=== PATIENT | male | born 1960 | race Caucasian/White ===

== ENCOUNTER 2021-05-14 12:12 | Inpatient (IN) | payer BC, SELFPAY ==
[~2021-05-14] VITALS: Ht 172.7 cm; Wt 146.1 kg
--- NOTE | 2021-05-14 12:15 | NUR ---
MD SINGLETON AT BEDSIDE ASSESSING PT.
--- NOTE | 2021-05-14 12:15 | NUR ---
PT PLACED IN BED 6.
[2021-05-14 12:40] VITALS: BP_SYST 95
[2021-05-14 12:53] LABS: BASOPHILS % (AUTO) 1.2 % (0.0-2.0); EOSINOPHILS % (AUTO) 0.9 % (0.0-4.0); HEMATOCRIT 29.1 % (36-54); HEMOGLOBIN 9.2 g/dL (14.0-18.0); LYMPHOCYTES # (AUTO) 0.4 K/uL (1.0-5.5); LYMPHOCYTES % (AUTO) 9.5 % (20.5-51.5); MEAN CORPUSCULAR HEMOGLOBIN 32 pg (27-31); MEAN CORPUSCULAR HGB CONC 32 % (32-36); MEAN CORPUSCULAR VOLUME 102 fL (79.0-98.0); MONOCYTES # (AUTO) 0.3 K/uL (0.0-1.0); MONOCYTES % (AUTO) 8.8 % (1.7-9.3); NEUTROPHILS # (AUTO) 3.1 K/uL (1.8-7.7); NEUTROPHILS % (AUTO) 79.6 % (40.0-70.0); PLATELET COUNT (AUTO) 103 K/uL (130-430); RED BLOOD CELL COUNT(AUTO) 2.84 MIL/uL (4.2-6.2); RED CELL DISTRIBUTION WIDTH 18.6 % (9.0-15.0); WHITE BLOOD COUNT (AUTO) 3.9 K/uL (4.8-10.8)
--- NOTE | 2021-05-14 13:00 | NUR ---
PT REMAINS IN HIS OWN W/C, PT IS OBESE AND EDEMA IN HIS LOWER LEGS. PT IS SUPPOSED TO START DIALYSIS NEXT WEEK.
[2021-05-14 13:09] LABS: POTASSIUM 4.6 mmol/L (3.5-5.1)
[2021-05-14 13:11] LABS: ALBUMIN 2.8 g/dL (3.4-4.8); TOTAL BILIRUBIN 0.9 mg/dL (0.0-1.0)
[2021-05-14 13:22] LABS: CREATININE 8.22 mg/dL (0.55-1.30)
--- NOTE | 2021-05-14 13:30 | NUR ---
IV ACCESS INSERTED TO THE RIGHT AC IN ONE ATTEMPT WITH 22GS. DEXTROSE GIVEN IMMEDIATELY AFTER BLOOD SUGAR CHECK
[2021-05-14] MEDS ORDERED: DEXTROSE 50% JECT 50 ML DISP.SYRIN ONE (13:34)
[2021-05-14 13:56] LABS: INR 1.5 (0.80-1.20); PROTHROMBIN TIME 15.7 SECS (9.5-12.5)
[2021-05-14] MEDS ORDERED: DEXTROSE 50% JECT 50 ML DISP.SYRIN IVP ONE (14:00)
[2021-05-14] MEDS ORDERED: FUROSEMIDE 100 MG/10 ML VIAL IVP ONE (14:00)
[2021-05-14] MEDS ORDERED: CALC0.258 PO (14:19)
[2021-05-14] MEDS ORDERED: NOR10 PO (14:19)
[2021-05-14] MEDS ORDERED: SUCR500T PO (14:19)
[2021-05-14] MEDS ORDERED: METO2.5T6 PO (14:19)
[2021-05-14] MEDS ORDERED: DOXA2TAB PO (14:19)
[2021-05-14] MEDS ORDERED: FURO-149 PO (14:19)
[2021-05-14] MEDS ORDERED: RIVA10TA PO (14:19)
--- NOTE | 2021-05-14 14:25 | NUR ---
PT HAS REMAINED ALERT THE ENTIRE TIME.
--- NOTE | 2021-05-14 14:32 | NUR ---
RN HAS RECEIVED ORDERS FROM MD VARGAS FOR ADMIT TO TELEMETRY. HOME MEDICATIONS ARE RECONCILED, FAMILY IS INFORMED OF THE PLAN OF CARE.
--- NOTE | 2021-05-14 14:38 | NUR ---
PT HAS HAD 3 BM'S AND HAS BEEN CLEANED AND NEW BED LINEN. NIECE AT BEDSIDE.
--- NOTE | 2021-05-14 16:10 | NUR ---
PT CONTINUES TO REST SOUNDLY. COVID TEST PENDING.
--- NOTE | 2021-05-14 18:20 | NUR ---
Notes- received pt in bed, awake and oriented, feels weak, denies any pain, per ER nurse latest blood sugar is 78. patient provided snacks and apple sauce at this time. has left arm shunt for dialysis. Niece at bedside. Oriented to call light use.
--- NOTE | 2021-05-14 18:40 | NUR ---
rounds Seen by Dr. Akins and aware of low blood pressure. spoke to dialysis nurse
[2021-05-14 18:44] VITALS: BP_SYST 90
--- NOTE | 2021-05-14 19:00 | NUR ---
RECEIVED BEDSIDE REPORT FROM RN. PT AWAKE IN BED. FAMILY AT BEDSIDE. PT TO RECEIVED DIALYSIS THIS PM. PT AOX4 ABLE TO MAKE NEEDS KNOWN. WILL CONTINUE TO MONITOR.
[2021-05-14] MEDS: D5/0.45 NS 1,000 ML IV SCH (19:45)
[2021-05-14] MEDS ORDERED: METOCLOPRAMIDE HCL 10 MG TABLET PO ONE (19:45)
[2021-05-14] MEDS ORDERED: amLODIPine BESYLATE 5 MG TABLET PO ONE (19:45)
--- NOTE | 2021-05-14 20:16 | NUR ---
MD CALLED : DR BURNS CALLED AND NOTIFIED THAT PTS BP IS 80/40 , 88/35 , MD ORDERED TO GIVE NS 250 ML BY DIALYSIS NURSE AND CONTINUE WITH THE DIALYSIS ORDER .
[2021-05-14 20:24] VITALS: BP_SYST 90
[2021-05-14] MEDS ORDERED: NS 250 ML IV ONE (20:30)
[2021-05-14] MEDS ORDERED: ALBUMIN HUMAN 25% 100 ML IV ONE (22:00)
--- NOTE | 2021-05-14 22:00 | NUR ---
GA RECEIVING DIALYSIS. BP LOW 80/44 MD MADE AWARE. WILL CONTINUE TO MONITOR.
[2021-05-14] MEDS: NORMAL SALINE 5 ML DISP.SYRIN IVF SCH (22:28)
--- NOTE | 2021-05-14 23:40 | NUR ---
MD CALLED : DR VARGAS CALLED AND NOTIFIED MD THAT PTS BS WAS LOW IN ER AND EARLIER WHILE CHECKING BS WAS ON THE 70S , NO ACCU CHECK ORDER FOR THE PT , MD ORDERED ACCU CHECK Q6HRS AND COVER WITH REGULAR INSULIN COVERAGE AND HYPOGLYCEMIA PROTOCOL .ORDER ENTERED AND NOTIFIED PRIMARY RN
[2021-05-14] MEDS ORDERED: GLUCOSE (DEXTROSE) ORAL GEL -Adults PO PRN (23:45)
[2021-05-14] MEDS ORDERED: DEXTROSE 50% JECT 50 ML DISP.SYRIN IVP PRN (23:45)
[2021-05-14] MEDS ORDERED: D5W 1,000 ML IV PRN (23:45)
[2021-05-15] VITALS (23 sets, daily range): BP systolic 70–125
--- NOTE | 2021-05-15 00:05 | NUR ---
pt transferred to icu. report given to sonia rn at bedside. notified rn that pt bp is low and dr dodson wants to be called once pt is in icu. notified rn about current blood sugar of 56 and pt received apple juice and started pt on d5 1/2 ns @ 50cc/hr. requested rn to recheck blood sugar in 15 minutes. Endorsed rn to dc dressing on L AV shunt site at 2am as per dialysis nurse. Endorsed rn to take pictures of wounds on legs since I was unable to do it due to stat dialysis.
--- NOTE | 2021-05-15 00:05 | NUR ---
RECEIVED TRANSFERRED FROM [facility] A 60 YO MALE WITH DIAGNOSIS OF ACUTE ON CHRONIC RENAL FAILURE. ALERT, BOUTS OF CONFUSION NOTED. AFIB. ON ROOM AIR. POX 94%. FELT COLD, WARM BLANKETS GIVEN. SHARON LOMBARDI VISITING. QUESTIONS ANSWERED. FENG AV SHUNT DRSG D/I, W/ THRILL AND BRUIT NOTED.
--- NOTE | 2021-05-15 00:15 | NUR ---
DR BURNS CALLED, UPDATED ON STATUS. NEW ORDERS GIVEN TO BE IMPLEMENTED.
[2021-05-15] MEDS ORDERED: NOREPINEPHRINE 4 MG/4 ML VIAL IV ONE ×4 (00:31→16:13)
--- NOTE | 2021-05-15 01:00 | NUR ---
LEVOPHED STARTED PER PROTOCOL.
[2021-05-15] MEDS: NOREPINEPHRINE BITARTRATE 4 MG in D5W 246 ML IV PRN ×5 (01:02→22:57)
--- NOTE | 2021-05-15 01:15 | NUR ---
PLACED PT ON O2 AT 2L/MIN/NC. POX 92%.
--- NOTE | 2021-05-15 01:30 | NUR ---
ACCU-CHEK 56, ORANGE JUICE GIVEN.
--- NOTE | 2021-05-15 03:00 | NUR ---
LOWER EXTREMITIES LEG WOUND DRSGS CHANGED, PICTURE TAKEN. LEVOPHED TITRATED EARLIER.
--- NOTE | 2021-05-15 05:00 | NUR ---
BACK CARE GIVEN. ASKED FOR ICE CHIPS. MULTIPLE REQUESTS.
--- NOTE | 2021-05-15 05:30 | NUR ---
OLIGURIC, VOIDED 30CC CLEAR KIMBERLY URINE.
--- NOTE | 2021-05-15 06:00 | NUR ---
ACCU-CHEK 87, NO INSULIN DUE PER SLIDING SCALE COV.
[2021-05-15] MEDS: NORMAL SALINE 5 ML DISP.SYRIN IVF SCH ×3 (06:29→22:57)
--- NOTE | 2021-05-15 06:30 | NUR ---
NASAL CANULA TAKEN OFF PER PT REQUEST. REMAINS IN GUARDED CONDITION.
[2021-05-15] MEDS: INSULIN REGULAR, HUMAN 100 UNITS/ML, 10 ML VIAL (humuLIN R) SUBCUT PRN (06:31)
--- NOTE | 2021-05-15 06:40 | NUR ---
DR VARGAS CALLED, NOTIFIED OF HIGH HR AND LOW BP, AND ANXIETY. ORDERED TO GET DR MORENO CARDIAC CONSULT.
--- NOTE | 2021-05-15 06:53 | NUR ---
CONSULT CARDIO. CONSULTING MD: DR. MORENO PERSON NOTIFIED: MONTY DIALED: [phone] ORDERED BY: DR. VARGAS
[2021-05-15 06:57] LABS: BASOPHILS % (AUTO) 0.3 % (0.0-2.0); EOSINOPHILS % (AUTO) 0.4 % (0.0-4.0); HEMATOCRIT 28.6 % (36-54); HEMOGLOBIN 9.4 g/dL (14.0-18.0); LYMPHOCYTES # (AUTO) 0.2 K/uL (1.0-5.5); LYMPHOCYTES % (AUTO) 3.4 % (20.5-51.5); MEAN CORPUSCULAR HEMOGLOBIN 33 pg (27-31); MEAN CORPUSCULAR HGB CONC 33 % (32-36); MEAN CORPUSCULAR VOLUME 99 fL (79.0-98.0); MONOCYTES # (AUTO) 0.8 K/uL (0.0-1.0); MONOCYTES % (AUTO) 11.2 % (1.7-9.3); NEUTROPHILS # (AUTO) 5.7 K/uL (1.8-7.7); NEUTROPHILS % (AUTO) 84.7 % (40.0-70.0); PLATELET COUNT (AUTO) 108 K/uL (130-430); RED CELL DISTRIBUTION WIDTH 18.6 % (9.0-15.0); WHITE BLOOD COUNT (AUTO) 6.8 K/uL (4.8-10.8)
[2021-05-15 06:58] LABS: CREATININE 7.28 mg/dL (0.55-1.30); POTASSIUM 3.9 mmol/L (3.5-5.1)
[2021-05-15 07:02] LABS: ALBUMIN 2.9 g/dL (3.4-4.8); PHOSPHORUS 5.5 mg/dL (2.7-4.5); TOTAL BILIRUBIN 1.1 mg/dL (0.0-1.0)
[2021-05-15 07:19] LABS: CALCIUM 6.8 mg/dL (8.4-11.0)
[2021-05-15] MEDS ORDERED: NACL 0.9% 1,000 ML IV ONE (08:00)
[2021-05-15] MEDS: PHENYLEPHRINE HCL 50 MG in NS 245 ML IV PRN ×3 (08:30→22:54)
[2021-05-15] MEDS ORDERED: CALCIUM GLUCONATE 2 GM in NS 100 ML IV ONE (08:30)
[2021-05-15 08:50] LABS: THYROID STIMULATING HORMONE 1.82 uIu/mL (0.36-3.74)
[2021-05-15] MEDS ORDERED: CALCIUM ACETATE 667 MG CAP PO ONE (12:45)
[2021-05-15] MEDS ORDERED: NEPHROVITE, (FOLIC ACID/VITAMIN B COMP W-C 1 TAB) PO ONE (12:45)
--- NOTE | 2021-05-15 14:09 | NUR ---
DIALYSIS STARTING, LEONARDO INCREASED TO 1 MCG/KG/MIN DUE TO LOW BLOOD PRESSURE. PRECAST WORKER AWARE. WILL CONTINUE TO MONITOR
[2021-05-15] MEDS ORDERED: ALBUMIN HUMAN 25% 100 ML IV ONE ×2 (14:15→14:37)
[2021-05-15] MEDS: D5/0.45 NS 1,000 ML IV SCH ×2 (15:45→18:11)
[2021-05-15] MEDS: CALCIUM ACETATE 667 MG CAP PO SCH (17:40)
--- NOTE | 2021-05-15 17:53 | NUR ---
DIALYSIS COMPLETE, 1,100 INPUT, 539 OUT PER DEMAND EQUIPMENT REPAIRER.
--- NOTE | 2021-05-15 20:30 | NUR ---
Patient INCONTINENT of URINE Reposition & Turn patient off loading with pillows kept clean also dry as needed .
--- NOTE | 2021-05-15 20:31 | NUR ---
SKIN CARE provided paul care given d/t URINE incontinence .
[2021-05-15] MEDS: ACETAMINOPHEN 500 MG TABLET PO PRN (20:39)
--- NOTE | 2021-05-15 20:49 | NUR ---
New ORDERS DR GRANT PORITLLO AM Labs also Tylenol for Pain .
--- NOTE | 2021-05-15 22:06 | NUR ---
Phoned paged DR SAM PORTILLO Regarding ORDERS .
--- NOTE | 2021-05-15 22:12 | NUR ---
CALLED DR. VARGAS [phone] ANSWERED
[2021-05-15] MEDS: TEMAZEPAM 7.5 MG CAPSULE PO PRN (22:47)
--- NOTE | 2021-05-15 23:52 | NUR ---
New ORDERS DR SAM PORTILLO given RESTORIL 15 MG PO FOR SLEEP AIDE per patient Request .
[2021-05-16] VITALS (22 sets, daily range): BP systolic 90–131
[2021-05-16] MEDS: INSULIN REGULAR, HUMAN 100 UNITS/ML, 10 ML VIAL (humuLIN R) SUBCUT PRN ×3 (00:37→12:46)
--- NOTE | 2021-05-16 03:48 | NUR ---
WOUND CARE PERFORMED LEFT LOWER LEG , 100 % RED scat drainage no oder .
[2021-05-16] MEDS: ACETAMINOPHEN 500 MG TABLET PO PRN ×3 (04:11→21:04)
[2021-05-16] MEDS: PHENYLEPHRINE HCL 50 MG in NS 245 ML IV PRN ×2 (04:57→18:05)
--- NOTE | 2021-05-16 06:15 | NUR ---
MRSA COLLECTED & SENT TO LAB / .
[2021-05-16] MEDS: NORMAL SALINE 5 ML DISP.SYRIN IVF SCH ×3 (06:45→22:18)
--- NOTE | 2021-05-16 06:47 | NUR ---
Nutrition Update Luis Daniel Scale 16 noted. Pt admitted for Acute on Chronic Renal failure Diet: 2gm Na BMI: 48.9 kg/m2 RD to follow per nutrition care standards.
[2021-05-16 06:49] LABS: BASOPHILS % (AUTO) 0.5 % (0.0-2.0); EOSINOPHILS % (AUTO) 0.1 % (0.0-4.0); HEMATOCRIT 30.1 % (36-54); HEMOGLOBIN 9.6 g/dL (14.0-18.0); LYMPHOCYTES # (AUTO) 0.8 K/uL (1.0-5.5); LYMPHOCYTES % (AUTO) 9.8 % (20.5-51.5); MEAN CORPUSCULAR HEMOGLOBIN 32 pg (27-31); MEAN CORPUSCULAR HGB CONC 32 % (32-36); MEAN CORPUSCULAR VOLUME 100 fL (79.0-98.0); MONOCYTES % (AUTO) 12.2 % (1.7-9.3); NEUTROPHILS # (AUTO) 6.6 K/uL (1.8-7.7); NEUTROPHILS % (AUTO) 77.4 % (40.0-70.0); PLATELET COUNT (AUTO) 125 K/uL (130-430); WHITE BLOOD COUNT (AUTO) 8.5 K/uL (4.8-10.8)
--- NOTE | 2021-05-16 07:15 | NUR ---
OPENING NOTE: REPORT RECEIVED FROM RN USING SBAR REPORTING. ALL CARE ASSUMED.
[2021-05-16 07:59] LABS: ALBUMIN 2.8 g/dL (3.4-4.8); CREATININE 6.06 mg/dL (0.55-1.30); PHOSPHORUS 5.5 mg/dL (2.7-4.5); POTASSIUM 3.9 mmol/L (3.5-5.1); THYROID STIMULATING HORMONE 1.66 uIu/mL (0.36-3.74); TOTAL BILIRUBIN 1.2 mg/dL (0.0-1.0)
[2021-05-16] MEDS: NEPHROVITE, (FOLIC ACID/VITAMIN B COMP W-C 1 TAB) PO SCH (09:08)
[2021-05-16] MEDS: CALCIUM ACETATE 667 MG CAP PO SCH ×3 (09:08→17:30)
[2021-05-16] MEDS: calcitrioL 0.25 MCG CAPSULE PO SCH (09:08)
[2021-05-16 09:53] LABS: CALCIUM 6.9 mg/dL (8.4-11.0)
[2021-05-16] MEDS: NOREPINEPHRINE BITARTRATE 4 MG in D5W 246 ML IV PRN ×2 (09:58→18:06)
--- NOTE | 2021-05-16 11:48 | NUR ---
Dietitian Recommendations *[facility], Nepro BID, Alonso BID, Banatrol TID. ONS and modular provides: 1042 kcal, 43gm protein daily. *Encourage PO intake. Please see Nutritional Assessment for details. RANDAL, RD
[2021-05-16] MEDS: RIVAROXABAN 10 MG TABLET PO SCH (12:53)
[2021-05-16] MEDS: TEMAZEPAM 7.5 MG CAPSULE PO PRN (21:04)
[2021-05-17] VITALS (22 sets, daily range): BP systolic 85–107
[2021-05-17] MEDS: NORMAL SALINE 5 ML DISP.SYRIN IVF SCH ×2 (06:55→18:35)
[2021-05-17 07:23] LABS: BASOPHILS # (AUTO) 0.1 K/uL (0.0-0.2); BASOPHILS % (AUTO) 0.8 % (0.0-2.0); EOSINOPHILS # (AUTO) 0.1 K/uL (0.0-0.4); EOSINOPHILS % (AUTO) 1.2 % (0.0-4.0); HEMATOCRIT 32.7 % (36-54); LYMPHOCYTES # (AUTO) 0.9 K/uL (1.0-5.5); LYMPHOCYTES % (AUTO) 12.8 % (20.5-51.5); MEAN CORPUSCULAR HEMOGLOBIN 32 pg (27-31); MEAN CORPUSCULAR HGB CONC 31 % (32-36); MEAN CORPUSCULAR VOLUME 106 fL (79.0-98.0); MONOCYTES # (AUTO) 0.7 K/uL (0.0-1.0); MONOCYTES % (AUTO) 9.6 % (1.7-9.3); NEUTROPHILS # (AUTO) 5.5 K/uL (1.8-7.7); NEUTROPHILS % (AUTO) 75.6 % (40.0-70.0); PLATELET COUNT (AUTO) 115 K/uL (130-430); RED BLOOD CELL COUNT(AUTO) 3.09 MIL/uL (4.2-6.2); RED CELL DISTRIBUTION WIDTH 19.9 % (9.0-15.0); WHITE BLOOD COUNT (AUTO) 7.3 K/uL (4.8-10.8)
[2021-05-17 07:41] LABS: CALCIUM 7.3 mg/dL (8.4-11.0); POTASSIUM 4.4 mmol/L (3.5-5.1)
[2021-05-17] MEDS: ACETAMINOPHEN 500 MG TABLET PO PRN (09:31)
[2021-05-17] MEDS: RIVAROXABAN 10 MG TABLET PO SCH (09:31)
[2021-05-17] MEDS: NEPHROVITE, (FOLIC ACID/VITAMIN B COMP W-C 1 TAB) PO SCH (09:32)
[2021-05-17] MEDS: CALCIUM ACETATE 667 MG CAP PO SCH ×3 (09:32→18:35)
[2021-05-17] MEDS: CARVEDILOL 6.25 MG TABLET (COREG) PO SCH ×2 (09:32→21:00)
[2021-05-17] MEDS: calcitrioL 0.25 MCG CAPSULE PO SCH (09:32)
[2021-05-17] MEDS ORDERED: NOREPINEPHRINE 4 MG/4 ML VIAL IV ONE (10:24)
[2021-05-17] MEDS: NOREPINEPHRINE BITARTRATE 4 MG in D5W 246 ML IV PRN (10:32)
[2021-05-17] MEDS: INSULIN REGULAR, HUMAN 100 UNITS/ML, 10 ML VIAL (humuLIN R) SUBCUT PRN (12:26)
--- NOTE | 2021-05-17 13:13 | NUR ---
CONSULT ID CONSULTING MD: Ney POSADA PERSON NOTIFIED: ANASTACIO DIALED: [phone] ORDERED BY: DR. VARGAS
[2021-05-17 17:54] LABS: BILIRUBIN,URINE 1+ (NEGATIVE); BLOOD, URINE NEGATIVE (NEGATIVE); COLOR,URINE YELLOW (YELLOW); GLUCOSE,URINE NEGATIVE (NEGATIVE); KETONES,URINE TRACE (NEGATIVE); LEUKOCYTE ESTERASE ,URINE NEGATIVE (NEGATIVE); NITRITE, URINE NEGATIVE (NEGATIVE); PH,URINE 5.5 (5.0-8.0); PROTEIN URINE TRACE (NEGATIVE); UROBILINOGEN,URINE 0.2 (0.2-1.0)
[2021-05-17 18:13] LABS: CLARITY/URINE SLIGHTLY HAZY (CLEAR)
[2021-05-17] MEDS ORDERED: cefTRIAXone 1 GM in D5W 50 ML IV SCH (19:00)
[2021-05-17 19:11] LABS: RBC,URINE 0-3 /HPF (0-3); WBC,URINE 0-3 /HPF (0-3)
[2021-05-17 19:12] LABS: BACTERIA,URINE FEW /HPF (None Seen)
[2021-05-17 19:13] LABS: COARSE GRANULAR CASTS,URINE 0-10 /LPF (None Seen)
--- NOTE | 2021-05-17 19:30 | NUR ---
Report received from day RN. Assuming care now.
--- NOTE | 2021-05-17 20:00 | NUR ---
Patient's niece in room with patient. Helps RN with turning and ADLs.
--- NOTE | 2021-05-17 20:00 | NUR ---
Patient continues to be on low doses of Neosynephrine and Levophed. SBP>65.
[2021-05-17] MEDS ORDERED: MIDODRINE HCL 5 MG TABLET (PROAMATINE) PO SCH (21:00)
--- NOTE | 2021-05-17 21:53 | NUR ---
Patient called out "nurse!" and undersigned went into room. Patient stated "I, I, .." then became unresponsive and breathing was agonal. Sats in 90s, but HR began decreasing slowly and doppler obtained, pulse not able to be heard. Malinda RN in room and storage battery charger called to room. Fem pulse difficult to palpate due to obesity. BEENA cole called at 2154. See CODE record. Dr Ramírez and Dr Medina room running CODE. Patient pronounced by Dr Ramírez at 2226. Niece in waiting room.
[2021-05-17] MEDS ORDERED: EPINEPHrine JECT 0.1 MG/ML SYR ONE (22:14)
[2021-05-17] MEDS ORDERED: SODIUM BICARBONATE 8.4% JECT 50 MEQ/50 ML SYRINGE IVP ONE (22:25)
[2021-05-17] MEDS ORDERED: NS 1000 ML IV.SOLN IV ONE (22:25)
[2021-05-17] MEDS ORDERED: EPINEPHrine JECT 0.1 MG/ML SYR IVP ONE (22:25)
[2021-05-17] MEDS ORDERED: CALCIUM CHLORIDE 1 GM/10 ML DISP.SYRIN (14 mEq Ca++/SYR) IV ONE (22:25)
--- NOTE | 2021-05-17 22:35 | NUR ---
RT NOTES @6210 CPR PERFORMED ON PT
--- NOTE | 2021-05-17 22:47 | NUR ---
MDs NOTIFIED OF PATIENT'S EXPIRATION DR. VARGAS [phone] BURNS FOR DR. CONTRERAS [phone] BAUMAN [phone] DR. MORENO [phone] SPOKE WITH CHRISTY PEGUERO [phone] SPOKE WITH KIM
[2021-05-18] MEDS ORDERED: EPOETIN ALFA 10,000 UNITS/ML VIAL SUBCUT SCH (09:00)
== END 2021-05-17 22:26 | DRG 682 ==
LOC: SED 12:12 → STU 14:05 → SIC 23:25
PROVIDERS: ADMIT Internal Medicine; ATTEND Internal Medicine
PROC: 5A1D70Z Performance of Urinary Filtration, Intermittent, Less than 6 Hours Per Day (ICD-10-PCS; 2021-05-14)
PROC: 5A1D70Z Performance of Urinary Filtration, Intermittent, Less than 6 Hours Per Day (ICD-10-PCS; 2021-05-15)
PROC: 5A1D70Z Performance of Urinary Filtration, Intermittent, Less than 6 Hours Per Day (ICD-10-PCS; 2021-05-16)
PROC: 5A12012 Performance of Cardiac Output, Single, Manual (ICD-10-PCS; principal; 2021-05-17)
DX: N17.9 Acute kidney failure, unspecified (principal); E43 Unspecified severe protein-calorie malnutrition; I48.20 Chronic atrial fibrillation, unspecified; Z68.42 Body mass index [BMI] 45.0-49.9, adult; I13.2 Hypertensive heart and chronic kidney disease with heart failure and with stage 5 chronic kidney disease, or end stage renal disease; G93.49 Other encephalopathy; I46.9 Cardiac arrest, cause unspecified; N18.6 End stage renal disease; E66.01 Morbid (severe) obesity due to excess calories; D63.8 Anemia in other chronic diseases classified elsewhere; D69.6 Thrombocytopenia, unspecified; D72.819 Decreased white blood cell count, unspecified; E11.22 Type 2 diabetes mellitus with diabetic chronic kidney disease; M19.90 Unspecified osteoarthritis, unspecified site; Z60.2 Problems related to living alone; E86.0 Dehydration; I50.9 Heart failure, unspecified; H54.8 Legal blindness, as defined in USA; Z20.822 Contact with and (suspected) exposure to COVID-19; E11.42 Type 2 diabetes mellitus with diabetic polyneuropathy; Z99.2 Dependence on renal dialysis; Z79.899 Other long term (current) drug therapy; Z83.3 Family history of diabetes mellitus; Z98.84 Bariatric surgery status; Z88.8 Allergy status to other drugs, medicaments and biological substances
CPT/HCPCS: 36415; 71045; 76770; 80048; 80053; 80061; 81000; 82962; 83690; 83880; 84100; 84443; 84484; 85025; 85610-TC; 85730-TC; 87040-TC; 87081; 87086; 90935; 90937; 92950; 93005; 93306; 96374; 99285; J0171; J0610; J0696; J0885; J1815; J2370; J7030; J7050; J7060; P9046